=== PATIENT | male | born 1945 | race Caucasian/White ===

== ENCOUNTER → 2017-05-24 | Outpatient (CLI) | payer BC ==
[~2017-05-24] MED LIST: ADENOSINE 75 MG in GIVE UN-DILUTED 0 ML IV ONE; ADENOSINE 90 MG/30 ML INJ IV ONE
== END | disposition home or self-care (01) ==
LOC: Rad HDHVI 08:02
PROVIDERS: ATTEND Internal Medicine Cardiovascular Disease
DX: Z01.818 Encounter for other preprocedural examination (principal); E78.00 Pure hypercholesterolemia, unspecified; E11.9 Type 2 diabetes mellitus without complications
CPT/HCPCS: 78452; 93005; 96374; 96375; A9500; J0153

== ENCOUNTER → 2017-08-04 | Outpatient (CLI) | payer BC | END | disposition home or self-care (01) | LOC: Rad HDHVI 15:06 | PROVIDERS: ATTEND Internal Medicine Cardiovascular Disease | DX: E11.9 Type 2 diabetes mellitus without complications (principal); R00.2 Palpitations | CPT/HCPCS: 93306 ==